=== PATIENT | female | born 1980 | race Asian ===

== ENCOUNTER 2018-10-15 07:35 | Emergency (ER) | payer OTHER ==
--- NOTE | 2018-10-15 08:21 | EDM.PDOC ---
ED HPI GENERAL MEDICAL PROBLEM - General Chief Complaint: Respiratory Problem Stated Complaint: cough Time Seen by Provider: 10/15/18 08:05 Source of Information: Reports: Patient, Family, RN History Limitations: Reports: No Limitations - History of Present Illness INITIAL COMMENTS - FREE TEXT/NARRATIVE: 38 yr old female presents with cough and congestion for about 10 days. She is traveling through this area from [place] to [facility]. States she did cough up a small amount of sputum yesterday. States she has been tested for Tb several times and has been negative with chest x-ray. Uncertain if Mantoux test is positive in the past. States she has had a blood test and it has always been negative. Recent history of travel to the [facility]. She had been seen in [place] for this and was diagnosed with allergies. States some temperature, but did take advil and none now. No shortness of breath noted and pt is ambulatory without shortness of breath. - Related Data Allergies Allergy/AdvReac Type Severity Reaction Status Date / Time No Known Allergies Allergy Verified 10/15/18 07:58 Home Meds: Home Meds NK [No Known Home Meds] 10/15/18 [History] ED ROS GENERAL - Review of Systems Review Of Systems: See Below Constitutional: Reports: Fever, Other (decrease in energy) HEENT: Denies: Eye Pain, Hearing Loss, Rhinitis, Throat Pain Respiratory: Reports: Cough, Sputum. Denies: Shortness of Breath Cardiovascular: Denies: Chest Pain, Dyspnea on Exertion Endocrine: Reports: No Symptoms GI/Abdominal: Denies: Abdominal Pain, Decreased Appetite Musculoskeletal: Reports: No Symptoms Skin: Reports: No Symptoms Neurological: Reports: No Symptoms Psychiatric: Reports: No Symptoms ED EXAM, GENERAL - Physical Exam Exam: See Below Exam Limited By: No Limitations General Appearance: Alert, No Apparent Distress Eye Exam: Bilateral Eye: PERRL Ears: Normal External Exam, Normal Canal, Hearing Grossly Normal, Normal TMs Nose: Normal Inspection, Normal Mucosa. No: Nasal Drainage Throat/Mouth: Normal Oropharynx, Normal Voice, No Airway Compromise Head: Atraumatic, Normocephalic Neck: Supple, Non-Tender, Full Range of Motion, Other (Mild (<0.5cm) anterior cervical lymphadenopathy, equal bilaterally.) Respiratory/Chest: No Respiratory Distress, Lungs Clear, Normal Breath Sounds Cardiovascular: Regular Rate, Rhythm Peripheral Pulses: 2+: Radial (L), Radial (R) GI/Abdominal: Soft, Non-Tender Extremities: Normal Inspection, Normal Range of Motion Neurological: Alert, Oriented, Normal Cognition Psychiatric: Normal Affect, Normal Mood Skin Exam: Warm, Dry, Normal Color (Molina tone skin, normal for race) Course - Vital Signs Last Recorded V/S: Last Vital Signs Temp 98.6 F 10/15/18 08:09 Pulse 78 10/15/18 08:09 Resp 16 10/15/18 08:09 BP 114/73 10/15/18 08:09 Pulse Ox 100 10/15/18 08:09 - Orders/Labs/Meds Orders: Active Orders 24 hr Category Date Time Status Chest 2V [CR] Stat Exams 10/15/18 08:03 Ordered Labs: Laboratory Tests 10/15/18 10/15/18 Range/Units 08:30 08:30 WBC 5.9 (4.0-11.0) K/uL RBC 4.87 (3.80-5.80) M/uL Hgb 14.0 (11.5-16.5) g/dL Hct 41.0 (37.0-47.0) % MCV 84 (76-96) fL MCH 28.7 (27.0-32.0) pg MCHC 34.1 (31.0-35.0) g/dL RDW 12.8 (11.0-16.0) % Plt Count 259 (150-500) K/uL MPV 9.6 (6.0-10.0) fL Neut % (Auto) 56.5 (45.0-70.0) % Lymph % (Auto) 31.1 (20.0-40.0) % Rincon % (Auto) 6.8 (3.0-10.0) % Eos % (Auto) 5.4 H (1.0-5.0) % Baso % (Auto) 0.2 (0.0-0.5) % Neut # (Auto) 3.33 (2.00-7.50) K/uL Lymph # (Auto) 1.83 (1.50-4.00) K/uL Rincon # (Auto) 0.40 (0.20-0.80) K/uL Eos # (Auto) 0.32 (0.04-0.40) K/uL Baso # (Auto) 0.01 L (0.02-0.10) K/uL Sodium 138 (136-145) mmol/L Potassium 3.6 (3.5-5.1) mmol/L Chloride 103 (98-107) mmol/L Carbon Dioxide 28.1 (21.0-32.0) mmol/L Anion Gap 10.5 (5.0-15.0) mmol/L BUN 10 (8-26) mg/dL Creatinine 0.70 (0.55-1.02) mg/dL Est Cr Clr Drug Dosing 6.36 mL/min Estimated GFR (MDRD) > 60 (>60) MLS/MIN BUN/Creatinine Ratio 14.3 (6-25) Glucose 87 (74-100) mg/dL Calcium 8.3 L (8.5-10.1) mg/dL Departure - Departure Time of Disposition: :19 Disposition: Home, Self-Care 01 Condition: Good Clinical Impression: Cough in adult - Discharge Information *PRESCRIPTION DRUG MONITORING PROGRAM REVIEWED*: Not Applicable *COPY OF PRESCRIPTION DRUG MONITORING REPORT IN PATIENT RAFI: Not Applicable Instructions: Guaifenesin oral solution and syrup Referrals: PCP,None [Primary Care Provider] - Forms: ED Department Discharge Care Plan Goals: Take robitussin for cough 1 tsp every 4 to 6 hours as needed and use halls cough drops as needed. Continue to take allergy medications as directed. Generic for robitussin is guaifenesin. Drink plenty of fluids - 8 or more glasses of water a day. Take ibuprofen or tylenol as you have been for discomfort. - My Orders Last 24 Hours: My Active Orders 10/15/18 08:03 Chest 2V [CR] Stat - Assessment/Plan Last 24 Hours: My Active Orders 10/15/18 08:03 Chest 2V [CR] Stat Plan: Cough r/t allergen: Chest x-ray is non remarkable. No leukocytosis, slight elevation of eosinophils. Electrolytes and kidney function unremarkable, normal for reference range. Recommend rest, fluids ( at least 8 glasses of water daily and more with summer heat), Tylenol or Ibuprofen as needed, and continue with Charlee as directed daily, Robitussen DM every 4-6 hr as needed, and cough drops as needed. Cough may persist for 2-3 weeks. Return to ER or PCP as needed.
--- NOTE | 2018-10-17 00:40 | CR ---
DATE OF SERVICE: 10/15/2018 CLINICAL DATA: Cough, fever. PA AND LATERAL CHEST: No priors. The heart size is normal. The lungs are clear. No pneumothorax. No pleural effusions. No evidence of acute intrathoracic disease. [id number] MTDD
== END 2018-10-15 09:15 | disposition home or self-care (01) ==
LOC: LB.ED 07:35
DX: R05 Cough (principal)
CPT/HCPCS: 36415; 71046; 80048; 85025; 99283-25